=== PATIENT | male | born 1990 | race Two or more races ===

== ENCOUNTER 2017-08-16 11:17 | Emergency (ER) | payer MEDICAID, OTHER ==
[~2017-08-16] VITALS: Ht 172.7 cm; Wt 72.0 kg
[2017-08-16 11:27] VITALS: BP 133/78
[2017-08-16] MEDS ORDERED: DIPH,PERTUSS(ACELL),TET VAC/PF 0.5 ML IM-VACC ONE ×2 (11:30→11:52)
[2017-08-16] MEDS ORDERED: BACITRACIN ZINC OINT 500U/GM, 0.9 GM ONE (12:02)
== END 2017-08-16 12:15 | disposition home or self-care (01) ==
LOC: ED 12:00
DX: S61.230A Puncture wound without foreign body of right index finger without damage to nail, initial encounter (principal); W46.0XXA Contact with hypodermic needle, initial encounter; Y93.89 Activity, other specified; Y92.828 Other wilderness area as the place of occurrence of the external cause; Y99.8 Other external cause status
CPT/HCPCS: 36415; 86705; 86706; 86803; 87340; 87806; 90471; 90715; 99284; G0475

== ENCOUNTER 2018-11-28 22:47 | Emergency (ER) | payer MEDICAID, OTHER | END 2018-11-28 22:59 | disposition left against medical advice (07) | LOC: ED 22:53 | DX: R56.9 Unspecified convulsions (principal); Z53.21 Procedure and treatment not carried out due to patient leaving prior to being seen by health care provider ==

== ENCOUNTER 2018-12-03 13:06 | Emergency (ER) | payer MEDICAID ==
[~2018-12-03] VITALS: Ht 172.7 cm; Wt 76.0 kg
--- NOTE | 2018-12-03 13:25 | NUR ---
SEIZURE PADS IN PLACE
[2018-12-03] MEDS ORDERED: NEOSPORIN OINT. PKT 1 PACKET ONE (13:58)
[2018-12-03 14:10] LABS: BASOPHILS # (AUTO) 0.01 x10^3/uL (0-0.1); BASOPHILS % (AUTO) 0 % (0-1); EOSINOPHILS # (AUTO) 0.16 x10^3/uL (0-0.4); EOSINOPHILS % (AUTO) 2 % (1-7); LYMPHOCYTES # (AUTO) 1.17 x10^3/uL (1-3.4); LYMPHOCYTES % (AUTO) 11 % (22-44); MD NO; MEAN CORPUSCULAR HGB CONC 33.5 g/dL (33.2-36.2); MEAN CORPUSCULAR VOLUME 95.7 fL (81-97); MEAN PLATELET VOLUME 8.5 fL (7.4-10.4); MONOCYTES # (AUTO) 0.47 x10^3/uL (0.2-0.8); MONOCYTES % (AUTO) 5 % (2-9); NEUTROPHILS # (AUTO) 8.52 x10^3/uL (1.8-6.8); NEUTROPHILS % (AUTO) 83 % (42-75); PLATELET COUNT 217 x10^3/uL (130-400); RED BLOOD COUNT 4.39 x10^6/uL (4.38-5.82); RED CELL DISTRIBUTION WIDTH 13.6 % (9.4-14.8)
[2018-12-03 14:21] LABS: ANION GAP 6 mmol/L (5-15); CALCIUM 8.6 mg/dL (8.5-10.1); CHLORIDE 113 mmol/L (98-107); CREATININE 0.87 mg/dL (0.7-1.3)
[2018-12-03 14:26] VITALS: BP 116/77
--- NOTE | 2018-12-03 14:27 | NUR ---
BREAK RN FOR PRIMARY RN STEVEN. PT RESTING IN POSITION OF COMFORT ON ED GURNEY WITH EYES CLOSED, AROUSES EASILY TO VOICE. A&OX4. SIDE RAILS UP WITH SEIZURE PADS AND PRECAUTIONS IN PLACE. DENIES NEED TO USE RESTROOM AND ANY PAIN. VSS. CALL LIGHT IN REACH. PT UP FOR RECHECK.
--- NOTE | 2018-12-03 14:50 | NUR ---
BEDSIDE REPORT AND CARE BACK TO PRIMARY MATHEUS HARRIS.
--- NOTE | 2018-12-03 15:10 | NUR ---
PT GIVEN A SODA TO DRINK. A&O, NO SIGNS OF SEIZURE SINCE ARRIVAL.
[2018-12-03] MEDS ORDERED: LEVETIRACETAM 500 MG TABLET ONE (15:44)
[2018-12-03] MEDS ORDERED: LEVETIRACETAM 500 MG TABLET PO ONE (16:00)
== END 2018-12-03 15:57 | disposition home or self-care (01) ==
LOC: ED 15:45
DX: G40.319 Generalized idiopathic epilepsy and epileptic syndromes, intractable, without status epilepticus (principal)
CPT/HCPCS: 36415; 80048; 85025; 93005; 99284

== ENCOUNTER 2019-01-22 18:18 | Emergency (ER) | payer MEDICAID ==
[~2019-01-22] VITALS: Ht 172.7 cm; Wt 76.4 kg
[2019-01-22 18:28] VITALS: BP 117/78
[2019-01-22] MEDS ORDERED: DIPH,PERTUSS(ACELL),TET VAC/PF 0.5 ML IM-VACC ONE ×2 (18:30→18:37)
[2019-01-22] MEDS ORDERED: LEVE500T54 PO (18:35)
--- NOTE | 2019-01-22 19:00 | NUR ---
Pt transported on gurney from ED room to CT. NADN. No needs expressed.
[2019-01-22] MEDS ORDERED: NEOSPORIN OINT. PKT 1 PACKET ONE (19:35)
--- NOTE | 2019-01-22 19:42 | NUR ---
Patient/Caregiver given discharge instructions and they have confirmed that they understand the instructions. Patient ambulatory with steady gait.
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
== END 2019-01-22 19:48 | disposition home or self-care (01) ==
LOC: ED 19:01
DX: S00.93XA Contusion of unspecified part of head, initial encounter (principal); S60.221A Contusion of right hand, initial encounter; R51 Headache; M25.572 Pain in left ankle and joints of left foot; W22.8XXA Striking against or struck by other objects, initial encounter; Y93.89 Activity, other specified; Y92.410 Unspecified street and highway as the place of occurrence of the external cause; Y99.8 Other external cause status
CPT/HCPCS: 70450; 90471; 90715; 99284

== ENCOUNTER 2019-02-24 21:26 | Emergency (ER) | payer MEDICAID ==
[~2019-02-24] VITALS: Ht 172.7 cm; Wt 75.0 kg
[~2019-02-24 21:26] MED LIST: LEVE500T54 PO
[2019-02-24 21:29] VITALS: BP 116/60
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
[2019-02-24] MEDS ORDERED: ACETAMINOPHEN 500 MG TABLET PO ONE (22:00)
[2019-02-24] MEDS ORDERED: LIDOCAINE 1%-EPI 1:100K, 20ML INFIL ONE (22:00)
[2019-02-24] MEDS ORDERED: DIPH,PERTUSS(ACELL),TET VAC/PF 0.5 ML IM-VACC ONE ×2 (22:00→22:31)
--- NOTE | 2019-02-24 22:00 | NUR ---
attempt to breathalyze pt. pt refused. as.
[2019-02-24] MEDS ORDERED: LIDOCAINE-MPF 1%, 5ML ONE (22:30)
[2019-02-24] MEDS ORDERED: ACETAMINOPHEN 500 MG TABLET ONE (22:30)
--- NOTE | 2019-02-24 22:34 | NUR ---
pt no longer in room. room has been cleaned. charge nurse made aware. unable to locate pt. as
== END 2019-02-24 22:54 | disposition left against medical advice (07) ==
LOC: ED 22:41
DX: S01.511A Laceration without foreign body of lip, initial encounter (principal); S09.90XA Unspecified injury of head, initial encounter; F10.129 Alcohol abuse with intoxication, unspecified; Y04.0XXA Assault by unarmed brawl or fight, initial encounter; Y93.89 Activity, other specified; Y92.89 Other specified places as the place of occurrence of the external cause; Y99.8 Other external cause status; Y90.9 Presence of alcohol in blood, level not specified
CPT/HCPCS: 70450; 99284

== ENCOUNTER 2020-02-07 06:16 | Emergency (ER) | payer MEDICAID | END 2020-02-07 06:26 | disposition left against medical advice (07) | LOC: ED 06:20 | DX: R10.9 Unspecified abdominal pain (principal); N50.89 Other specified disorders of the male genital organs; Z53.21 Procedure and treatment not carried out due to patient leaving prior to being seen by health care provider ==